=== PATIENT | female | born 1990 | race American Indian/Alaskan Native ===

== ENCOUNTER 2018-12-30 11:43 | Inpatient (IN) | payer BC ==
[2018-12-30 12:21] VITALS: BMI 30.2
--- NOTE | 2018-12-30 13:25 | US ---
Indication: Possible leakage of fluid Comparison: None available Technique: Real-time ultrasound was performed through the pelvis. Findings: There is a single living fetus in cephalic presentation. Anterior placenta. The placenta is not previa. There are no adnexal masses or cysts evident. The study was performed for emergent evaluation, and the whole anatomic survey of the fetus was not performed. This should be performed on an outpatient elective basis as clinically warranted. Cervix length measures approximately 1.7 cm. Measurements and calculations: Fetus has a composite sonographic age of 35 weeks 2 days. This calculation is based on the biparietal diameter, head circumference, abdominal circumference, and femur length. Estimated heart rate 137.2 beats per min. Estimated weight 2657 g. Biophysical profile: movements 2/2 breathing 2/2 tone 2/2 Amniotic fluid 2/2 Total score impression: 8/8 Impression: Single living fetus with a composite sonographic age of 35 weeks 2 days. Estimated heart rate 137.2 beats per min. Cervix length measures approximately 1.7 cm. Biophysical profile of 8 out of 8.
[2018-12-30] MEDS ORDERED: Betamethasone Soluspan 30 mg/5mL Inj Susp IM ONE (13:34)
[2018-12-30] MEDS ORDERED: Lactated Ringer's 1,000 ML IV SCH (14:00)
[2018-12-30] MEDS ORDERED: Oxytocin 30 UNIT in NS 500 ml 30 UNITS/500 ML BAG IV ONE ×2 (14:00→15:05)
--- NOTE | 2018-12-30 14:01 | OBHP ---
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 Patient states that she went to the clinic for regular check up and SVE was noted for 4cm dilation. Patient did admits to intermittent possible leakage of fluid duri ng urination over the course of 2 days and also admits to intermittent abdominal tightness for the pa st 2 days. Patient denies any recent sexual activity and vaginal bleeding but does admit to good feta l movement. care: Dr. 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 Cashews (Itchiness and facial puffiness) Social Hx: Lives with mother, works at [employer]. Denies any hx of tobacco use, ETOH and illicit drug use A/P: Patient is a 28 year old at 36.5 weeks with MIRNA (01/22/19) and LMP (04/25/18), who present s to [facility] as per her primary PRODUCT MARKETING EXECUTIVE due to SVE of 4 cm dilation and questionable LOF: 1. Stable, Afebrile 2. EFM and TOCO 3. US and BPP 4. Speculum exam, nitrazine test and SVE 5. Further management as per US/BPP results, Speculum exam, nitrazine test and SVE - SVE: 4cm/70%/-2 - Nitrazine test inconclusive due to blood in the vaginal vault - Speculum: High leak, PPROM - Admit to labor - See admission orders - Administer bethamethasone 12mg PO once - Pen G 5mu bolus and 2.5Mu Q4H till delivery - Initiation of pitocin - Consult anesthesia upon request All plans and management discussed with Dr. Mariano and Dr. Abhishek Martinez, DO, PGY-2 Abdomen - PN: Normal Lungs - PN: Normal Heart - PN: Normal HEENT - PN: Not Done General - PN: Normal FHR - Baseline A Provider: 150 Comments, ACOG Physical Exam: Gen: NAD, Well-appearing Cardio: RRR, +S1, +S2, no murmurs Pulm: CTA bilaterally Abdomen: Soft, Gravid, fundal height (36.4cm) Ext: No edema, no cyanosis and no clubbing EFM: 150, + accelerations [place]: Irritability SVE: 4cm/70%/-2 Speculum: Suggestive of high leak Gestation - Est Wks by US: 36.5 Pool Provider: Negative Nitrazine Provider: Negative EGA AdmitDate IP: 36.5 Vital Signs Provider: Reviewed; Within Normal Limits IP Chief Complaint: Other NICHD Variability Prov Fetus A: Moderate 6-25bpm NICHD Accel Fetus A IP Provider: 15X15 NICHD Decel Fetus A IP Provider: None Dilatation, Provider: 4 Effacement, Provider: 70
[2018-12-30 14:13] LABS: BASO % 0.6 % (0.0-2.0); EOS % 0.1 % (0.0-4.0); HEMOGLOBIN 12.3 g/dL (11.0-16.0); LYMPH # 1.5 K/uL (1.0-4.3); LYMPH % 24.9 % (20.0-40.0); MEAN CELL VOLUME 86.6 fL (81.0-99.0); MEAN CORPUSCULAR HEMOGLOBIN 28.8 pg (27.0-31.0); MEAN CORPUSCULAR HGB CONC 33.2 g/dL (33.0-37.0); MEAN PLATELET VOLUME 7.6 fL (7.2-11.7); MONO # 0.4 K/uL (0.0-0.8); MONO % 6.5 % (0.0-10.0); NEUT # 4.2 K/uL (1.8-7.0); NEUT % 67.9 % (50.0-75.0); NRBC % 0.1 % (0.0-2.0); RBC 4.27 Mil/uL (3.80-5.20); RED CELL DISTRIBUTION WIDTH 14.2 % (11.5-14.5); WHITE BLOOD COUNT 6.2 K/uL (4.8-10.8)
[2018-12-30 14:19] LABS: SQUAMOUS EPITHIAL 3 /hpf (0-5); URINE BACTERIA RARE (<OCC); URINE BILIRUBIN NEGATIVE (NEGATIVE); URINE CLARITY Clear (Clear); URINE COLOR Yellow (YELLOW); URINE GLUCOSE (UA) NORMAL (Normal); URINE LEUKOCYTE ESTERASE NEG Leu/uL (Negative); URINE PROTEIN NEGATIVE (NEGATIVE); URINE UROBILINOGEN NORMAL mg/dL (0.2-1.0)
[2018-12-30 14:26] LABS: ALB/GLOB RATIO 1.3 (1.0-2.1); ALBUMIN 4.3 g/dL (3.5-5.0); ALT/SGPT 13 U/L (9-52); AST/SGOT 34 U/L (14-36); BLOOD UREA NITROGEN 8 mg/dL (7-17); CALCIUM 9.7 mg/dl (8.6-10.4); GFR NON-AFRICAN AMERICAN > 60
[2018-12-30] MEDS ORDERED: Penicillin G 5 Million Unit Vial IVPB ONE ×2 (14:26→14:30)
[2018-12-30 14:51] LABS: PROTHROMBIN TIME 10.6 SECONDS (9.7-12.2)
[2018-12-30 15:16] LABS: RAPID PLASMA REAGIN NONREACTIVE (NONREACTIVE)
[2018-12-30 15:45] LABS: CREATININE, RANDOM URINE 64.6 mg/dL
[2018-12-30 15:49] LABS: URINE BLOOD 3+ (NEGATIVE)
[2018-12-30 15:54] LABS: BILIRUBIN,DIRECT 0.2 mg/dL (0.0-0.4); URIC ACID 6.2 mg/dL (2.2-7.5)
--- NOTE | 2018-12-30 17:16 | OBADHP ---
Datetime: 12/30/2018 12:20 Admit Comment, IP Provider: CC: Sent for evaluation as per primary HPI: Patient is a 28 year old at 36.5 weeks with MIRNA (01/22/19) and LMP (04/25/18), who present s to [facility] as per her primary PRICER. Patient states that she went to the clinic for regular check up and SVE was noted for 4cm dilation. Patient did admits to intermittent possible leakage of fluid duri ng urination over the course of 2 days and also admits to intermittent abdominal tightness for the pa st 2 days. Patient denies any recent sexual activity and vaginal bleeding but does admit to good feta l movement. care: Dr. 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 Cashews (Itchiness and facial puffiness) Social Hx: Lives with mother, works at [employer]. Denies any hx of tobacco use, ETOH and illicit drug use A/P: Patient is a 28 year old at 36.5 weeks with MIRNA (01/22/19) and LMP (04/25/18), who present s to [facility] as per her primary PRICER due to SVE of 4 cm dilation and questionable LOF: 1. Stable, Afebrile 2. EFM and TOCO 3. US and BPP 4. Speculum exam, nitrazine test and SVE 5. Further management as per US/BPP results, Speculum exam, nitrazine test and SVE - SVE: 4cm/70%/-2 - Nitrazine test inconclusive due to blood in the vaginal vault - Speculum: High leak, PPROM - Admit to labor - See admission orders - Administer bethamethasone 12mg PO once - Pen G 5mu bolus and 2.5Mu Q4H till delivery - Initiation of pitocin - Consult anesthesia upon request All plans and management discussed with Dr. Mariano and Dr. Abhishek Martinez, , PGY-2 Abdomen - PN: Normal Lungs - PN: Normal Heart - PN: Normal HEENT - PN: Not Done General - PN: Normal FHR - Baseline A Provider: 150 Comments, ACOG Physical Exam: Gen: NAD, Well-appearing Cardio: RRR, +S1, +S2, no murmurs Pulm: CTA bilaterally Abdomen: Soft, Gravid, fundal height (36.4cm) Ext: No edema, no cyanosis and no clubbing EFM: 150, + accelerations [place]: Irritability SVE: 4cm/70%/-2 Speculum: Suggestive of high leak Gestation - Est Wks by US: 36.5 Pool Provider: Negative Nitrazine Provider: Negative IP Hx Assessment: The History has been Reviewed and is Current Vital Signs Provider: Reviewed; Within Normal Limits IP Chief Complaint: Other NICHD Variability Prov Fetus A: Moderate 6-25bpm NICHD Accel Fetus A IP Provider: 15X15 NICHD Decel Fetus A IP Provider: None Dilatation, Provider: 4 Effacement, Provider: 70 EGA AdmitDate IP: 36.5 IP Adm Impression: , intrauterine IP Admit Plan: Admit to unit
[2018-12-30] MEDS ORDERED: Fentanyl/Bupivacaine HCl 250 ML EPI ONE (20:33)
--- NOTE | 2018-12-30 21:08 | OBPN ---
Datetime: 12/30/2018 20:30 IP Progress Impression: Normal progression of labor; Reassuring heart rate; Gest. HTN/PreEclam psia/Eclampsia IP Informed Consent Obtain: Vaginal Delivery IP Procedures: Sterile Vag Exam IP Progress Plan: Continue present management; Anticipate Vaginal Delivery Membranes, Provider: Intact FHR - Baseline A Provider: 140 Gestation - Est Wks by US: 36.5 Presentation-Admit: Vertex IP Progress Note Comment: Pt seen and examined per Dr. Hi's request. Crying in pain and requestsi ng an Epidural SVE 6-7/90/-1 Reactive strip UC's Q 2-3 minutes with Pitocin at 8 Mu/min IV Hydration started and Anesthesia notified of need for an Epidural Dr. Hi aware of patient's condition Anticipate a vaginal delivery Vital Signs Provider: Reviewed Vital Signs Provider Details: BP's elevated NICHD Accel Fetus A IP Provider: 10X10 FHR Category Provider Fetus A: Category I NICHD Variability Prov Fetus A: Moderate 6-25bpm Dilatation, Provider: 6-7 Effacement, Provider: 90 Station, Provider: -1 NICHD Decel Fetus A IP Provider: None Datetime: 12/30/2018 12:20 Pool Provider: Negative Nitrazine Provider: Negative
[2018-12-31] MEDS ORDERED: Oxytocin 30 UNIT in NS 500 ml 30 UNITS/500 ML BAG IV ONE (00:41)
[2018-12-31] MEDS ORDERED: Oxycodone/Acetaminophen 5/325 mg Tab PO PRN ×2 (00:41)
[2018-12-31] MEDS ORDERED: Benzocaine/Menthol 20%-0.5% Topical Spray (60 ml) TOP PRN (00:41)
--- NOTE | 2018-12-31 00:45 | OBDS ---
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 atrumatic, spontaneous delivery of head in [facility]. no nuchal cord noted. atrumtaic, spontaneous deliver yof antieor followed by poseiro should er followed by [facility] body. both oral and nasal passages of the baby were bulb suctioned. um bilcal cord was clamped and cut. baby handed to mother on abodmen with RN andra. pediatrican p resnet. cord blood and cord gases collected adn sent x 2. spotnaoeu deliver of intact placenta with m embranes. fundus firm. good hemsotias, seoncd degree peirneal lacerationed noted adn repaired wtih 2- 0 chromic. good hemostasis, n ocompicaiotns. live female infnat apgars 9,9 wegit of 6lbs 8 ounces ebl 300ml no complications LABOR SUMMARY EDC: 01/22/2019 00:00 No. Babies in Womb: 1 Attempted: No Labor Anesthesia: Epidural LABOR INFORMATION Complete Dilatation: 12/30/2018 21:43 Group B Beta Strep: Done, Result Unknown MEMBRANES Membranes Rupture Method: Artificial Rupture of Membranes: 12/30/2018 18:37 Length of Rupture (hrs): 5.60 Amniotic Fluid Color: Clear Amniotic Fluid Amount: Moderate Amniotic Fluid Odor: None STAGES OF LABOR Stage 2 hrs: 2 Stage 2 min: 30 Stage 3 hrs: 0 Stage 3 min: 5 BABY A INFORMATION Delivery Date/Time: 12/31/2018 00:13 Method of Delivery: Vaginal Born in Route : No : N/A Forceps: N/A Vacuum Extraction: N/A Shoulder Dystocia : No SHOULDER DYSTOCIA BABY A Delivery Date/Time: 12/31/2018 00:13 PRESENTATION/POSITION BABY A Presentation: Cephalic Cephalic Presentation: Vertex Vertex Position: Left Occipital Anterior Breech Presentation: N/A PLACENTA INFORMATION BABY A Placenta Delivery Time : 12/31/2018 00:18 Placenta Method of Delivery: Spontaneous Placenta Status: Delivered SCORES BABY A Heart Rate 1 min: >100 bpm Resp Effort 1 min: Good Cry Reflex Irritability 1 min: Cough or Sneeze or Pulls Away Muscle Tone 1 min: Active Motion Color 1 min: Body [place], Extremities Blue Resuscitation Effort 1 min: N/A SCORE 1 MIN: 9 Heart Rate 5 min: >100 bpm Resp Effort 5 min: Good Cry Reflex Irritability 5 min: Cough or Sneeze or Pulls Away Muscle Tone 5 min: Active Motion Color 5 min: Body [place], Extremities Blue Resuscitation Effort 5 min: N/A SCORE 5 MIN: 9 INFANT INFORMATION BABY A Gestational Age at Delivery: 36.6 Gestational Status: Infant Outcome : Liveborn Infant Condition : Stable Infant Sex: Female IDENTIFICATION/MEDS BABY A ID Band Number: [id number] ID Band Location: Left Leg; Left Arm Sensor Applied: Yes Sensor Number: [id number] Sensor Location : Cord Clamp WEIGHT/LENGTH BABY A Birthweight (gms): 2950 Weight (lb): 6 Infant Weight (oz): 8 Infant Length Inches: 19.50 Infant Length cms: 49.5 CORD INFORMATION BABY A No. Cord Vessels: 3 Nuchal Cord : N/A Cord Blood Taken: Yes Infant Suction: None ASSESSMENT BABY A Infant Complications: None Physical Findings at Delivery: Within Normal Limits Infant Respirations: Appears Normal Therapeutic Mentor/ALS Called : No Infant Care By: Transferred To: Remains with Mother
[2018-12-31 08:41] LABS: BASO % 0.1 % (0.0-2.0); LYMPH # 1.2 K/uL (1.0-4.3); LYMPH % 10.9 % (20.0-40.0); MEAN CELL VOLUME 86.2 fL (81.0-99.0); MEAN CORPUSCULAR HEMOGLOBIN 28.9 pg (27.0-31.0); MEAN CORPUSCULAR HGB CONC 33.5 g/dL (33.0-37.0); MEAN PLATELET VOLUME 7.8 fL (7.2-11.7); MONO % 8.5 % (0.0-10.0); NEUT # 9.2 K/uL (1.8-7.0); NEUT % 80.5 % (50.0-75.0); RBC 3.48 Mil/uL (3.80-5.20); RED CELL DISTRIBUTION WIDTH 14.1 % (11.5-14.5)
[2018-12-31 08:46] LABS: HEMOGLOBIN 10.1 g/dL (11.0-16.0); WHITE BLOOD COUNT 11.4 K/uL (4.8-10.8)
[2018-12-31] MEDS: Multiple Vitamins Tab PO SCH (09:52)
--- NOTE | 2018-12-31 14:23 | OBPPN ---
Datetime: 12/31/2018 07:43 PP Pain Prov: Within normal limits PP Nausea Prov: Denies PP Flatus Prov: No PP BM Prov: No PP Breasts Prov: Not Done PP Heart Prov: Normal PP Lungs Prov: Normal PP Abdomen/Uterus Prov: Normal PP Lochia Prov: Normal PP Vulva/Perineum Prov: Not Done PP CVA Tenderness Prov: Not Done PP Extremities Prov: Normal PP C/S Incision Prov: Not Applicable PP Progress Prov: Normal PP Comments Phys Exam Prov: Gen: well appearing, sitting comfortably in chair Cardio: RR, +S1 and S2, no m/r/g Pulm: CTA b/l, no w/r/r Abdomen: slight tenderness to palpation in lower quadrants, no rebounding or guarding, fundal heig ht at umbilicus : 2nd degree laceration: Ext: no pitting edema, cyanosis or clubbing PP Impression Prov: Normal progression PP Plan Prov: Continue present management; consult PP Progress Note Prov: Patient seen and examined at bedside. Per patient, no acute events overnight. Pain is minimal and well controlled at this time. Epidural catheter was removed this morning at 7:4 5 AM. She has not received ibuprofen/percocet yet. Lochia is minimal (3 pads in 6 hrs). Patient is a mbulating well from bed to chair and tolerating a regular diet. She denies gas or bowel movements (l ast BM 2 hrs before delivery on 12/30/18). Onofre catheter was removed and she has been urinating well without discomfort. She was breast feeding this am. She reports hematuria and pain at the laceration site. She denies fever, chills, headache, dizziness, vision changes, nausea, vomiting, dysuria, low er extemity swelling, numbness/tingling, chest pain, palpitations, or SOB. VS: Temp: 97.8; HR: 74; BP: 119/75; RR: 18; O2: 99% PE: Gen: well appearing, sitting comfortably in chair Cardio: RR, +S1 and S2, no m/r/g Pulm: CTA b/l, no w/r/r Abdomen: slight tenderness to palpation in lower quadrants, no rebounding or guarding, fundal heig ht at umbilicus : incision: c/d/i, no uterine tendnerss VE: minimal locha, non foul smeling Ext: no pitting edema, cyanosis or clubbing Labs: (12/31/18) 11.4>10.1/30.0<276 Rubella/RPR/HepB: (-) Test: OB U/S (12/30/18): cephalic fetus @ 35.2 wk gestation, 05/08 BPP A/P: 28 y/o F PPD0 s/p (delivered at 0:13 on 12/31/18), complicated by 2nd degree lacer ation in the setting of PPROM at 36.5 wks -Pt received 12mu PCN, 12mg betamethasone -stable, afebrile -continue analgesics with ibuprofen/percocet. continue multivitamins, sennakot -continue topical dermoplast to laceration site -encourage ambulation and hydration -encourage breast feeding. c/w help desk consultant recs -continue regular diet as tolerated -continue routine care Case discussed with Dr. Kendell Deal PGY1 IP PP Procedures: None; Antibiotics Vital Signs Provider PP: Reviewed; Within Normal Limits
[2018-12-31 16:04] VITALS: TEMP 97.3
[2019-01-01 07:10] LABS: BASO % 0.2 % (0.0-2.0); EOS % 0.1 % (0.0-4.0); HEMOGLOBIN 9.5 g/dL (11.0-16.0); LYMPH # 2.4 K/uL (1.0-4.3); LYMPH % 24.2 % (20.0-40.0); MEAN CELL VOLUME 86.5 fL (81.0-99.0); MEAN CORPUSCULAR HEMOGLOBIN 28.6 pg (27.0-31.0); MEAN CORPUSCULAR HGB CONC 33.1 g/dL (33.0-37.0); MEAN PLATELET VOLUME 7.3 fL (7.2-11.7); MONO # 0.8 K/uL (0.0-0.8); NEUT # 6.7 K/uL (1.8-7.0); NEUT % 67.5 % (50.0-75.0); RBC 3.32 Mil/uL (3.80-5.20); RED CELL DISTRIBUTION WIDTH 14.5 % (11.5-14.5); WHITE BLOOD COUNT 9.8 K/uL (4.8-10.8)
[2019-01-01 07:32] VITALS: BP 121/80; RESP 20; O2SAT 99
[2019-01-01] MEDS: Multiple Vitamins Tab PO SCH (10:11)
[2019-01-01 20:50] VITALS: PULSE 74
--- NOTE | 2019-01-01 21:02 | OBPPN ---
Datetime: 01/01/2019 12:08 PP Pain Prov: Within normal limits PP Nausea Prov: Denies PP Flatus Prov: Yes PP BM Prov: Yes PP Heart Prov: Normal PP Lungs Prov: Normal PP Abdomen/Uterus Prov: Normal PP Lochia Prov: Normal PP Extremities Prov: Normal PP Progress Prov: Normal PP Comments Phys Exam Prov: Abdomen: Soft, Non-tender, fundus is firm and slightlty below the umbili cus PP Impression Prov: Normal progression PP Plan Prov: Continue present management PP Progress Note Prov: Patient was seen and examined at bedside, per Dr. Hi's request. Patient s tates that she is doing well. Patient's pain is well controlled. Patient is eating and ambulating wit hout difficulties. Patient is urinating without difficulties, passing flatus and has had a bowel move ment. Patient denies any symptoms of fever, chills, nausea, vomiting, chest pain, palpitations, short ness of breath, dizziness. Vital Signs: WNL PE: WNL, refer to PE box comment above Labs: 6.2>12.3/36.9<302, 11.4>10.1/30.0<276 Rubella Immune, 0+ A/P: Patient is a 28 year old who presented at 36.6 weeks, who is now via with seco nd degree laceration: 1. Stable, Afebrile 2. H/H stable 3. Continue to encourage hydration, ambulation and 4. Continue with present management 5. Plans for discharge today as per primary: Please discharge patient home Will follow up with Dr. Hi in 6 weeks for check Advised to nothing per vagina or sexual intercourse for 6-8 weeks Counseled to continue with hydrating, ambulation and Will continue with your vitamins daily x 4-6 months Will take Motrin 600mg PO every 6 hours as needed. Do not take on an empty stomach Advised to return to the hospital or call Dr. Hi if any symptoms of fever, chills, nausea, vomi ting, abdominal pain, vaginal bleeding or abnormal vaginal discharge All plans and management discuss with Dr. Rdz
--- NOTE | 2019-01-01 21:02 | OBDCSUM ---
Datetime: 01/01/2019 13:51 Discharged to, Provider: Home Follow up at, Provider: 6 weeks Disch Instr Activity: Normal activity; May be up to bathroom; May be up for meals; May Shower Disch Instr Diet: Regular Discharge Instructions, Provider: Routine instructions given Discharge Diagnosis, Provider: Labor; Delivery Discharge Time: 01/01/2019 13:51 Follow up in weeks, Provider: Dr. Ana Laura Hi Disch Referrals: None Contraception discussed, Prov: Yes Disch Activity Restrictions: No exercising; No lifting; No driving; No sexual activity; Nothing in v agina - [place], tampons, douche Discharge Comment, Provider: Patient was seen and examined at bedside, per Dr. Hi's request. Pat ient states that she is doing well. Patient's pain is well controlled. Patient is eating and ambulati ng without difficulties. Patient is urinating without difficulties, passing flatus and has had a marah l movement. Patient denies any symptoms of fever, chills, nausea, vomiting, chest pain, palpitations, shortness of breath, dizziness. Vital Signs: WNL PE: WNL, refer to PE box comment above Labs: 6.2>12.3/36.9<302, 11.4>10.1/30.0<276 Rubella Immune, 0+ A/P: Patient is a 28 year old who presented at 36.6 weeks, who is now via with se[place] nd degree laceration: 1. Stable, Afebrile 2. H/H stable 3. Continue to encourage hydration, ambulation and 4. Continue with present management 5. Plans for discharge today as per primary: Please discharge patient home Will follow up with Dr. Hi in 6 weeks for check Advised to nothing per vagina or sexual intercourse for 6-8 weeks Counseled to continue with hydrating, ambulation and Will continue with your vitamins daily x 4-6 months Will take Motrin 600mg PO every 6 hours as needed. Rx given from Dr. Hi. Do not take on an empty stomach Advised to return to the hospital or call Dr. Hi if any symptoms of fever, chills, nausea, vomi ting, abdominal pain, vaginal bleeding or abnormal vaginal discharge Discharge Diagnosis Prov Other: at 36.6 weeks Contraception after Delivery: Undecided
== END 2019-01-01 15:45 | disposition home or self-care (01) | DRG 805 ==
LOC: C.EROB 11:43 → C.4D 13:35 → C.EROB 13:50 → C.4D 20:00 → C.4M 12-31 02:30
PROVIDERS: ADMIT Obstetrics & Gynecology; ATTEND Obstetrics & Gynecology
PROC: 0KQM0ZZ Repair Perineum Muscle, Open Approach (ICD-10-PCS; principal; 2018-12-31)
PROC: 10E0XZZ Delivery of Products of Conception, External Approach (ICD-10-PCS; 2018-12-31)
DX: O42.913 Preterm premature rupture of membranes, unspecified as to length of time between rupture and onset of labor, third trimester (principal); O60.14X0 Preterm labor third trimester with preterm delivery third trimester, not applicable or unspecified; Z37.0 Single live birth; Z3A.36 36 weeks gestation of pregnancy; O70.1 Second degree perineal laceration during delivery; O14.94 Unspecified pre-eclampsia, complicating childbirth